=== PATIENT | female | born 1980 | race Hispanic/Latino ===

== ENCOUNTER 2018-09-30 13:47 | Observation (INO) | payer BC ==
[~2018-09-30] VITALS: Ht 165.1 cm; Wt 72.1 kg
[2018-09-30] MEDS ORDERED: SODIUM CHLORIDE 0.9% 1000ML 1,000 ML IV STA (13:49)
[2018-09-30] MEDS ORDERED: ONDANSETRON HCL INJ 2MG/ML 2ML 2 MG/ML VIAL IV STA (13:49)
[2018-09-30] MEDS ORDERED: MORPHINE SULFATE INJ 4 MG/ML INJ 1ML IV STA (13:49)
--- OUTSIDE RECORDS SUMMARY | 2018-09-30 13:50 | XMS REPORT | Encounter Summary ---
Author Organization Unknown Address [address] [place] [address] Phone [phone] Reason for Visit Screening - TB Instructions 1. Tuberculosis screening Tubersol 5 tub. unit/0.1 mL intradermal injection solution PPD (purified protein derivative), skin test Discussion Note Pt is in NAD; Verbalizes understanding of all instructions with no questions at this time. Patient educational handouts: No information available. Plan of Care Patient Instructions Return in 48-72 hrs for TB reading. If not, the skin test will be considered invalid and will have to be repeated. In case of emergency call 911 or go to nearest ER. Reminders Provider Appointments None recorded. Lab PPD (Purified Protein Derivative), Skin Test 03/05/2017 [facility] Referral None recorded. Procedures None recorded. Surgeries None recorded. Imaging None recorded. Medications Name Start Date Tubersol 5 tub. unit/0.1 mL intradermal injection solution Inject 0.1 mL by intradermal route. Medications Administered Name Date Tubersol 5 tub. unit/0.1 mL intradermal injection solution Inject 0.1 mL by intradermal route. [id number] Vitals None recorded. Lab Results None recorded. Allergies Code Code System Name Reaction Severity Status Onset NKDA Problems None recorded. Procedures None recorded. Vaccine List None recorded. Social History None recorded. Past Encounters 03/05/2017 Tuberculosis Screening Siria Bullard, SOFTWARE QUALITY TEST ENGINEER-C: [address] [place] [address], Ph. History of Present Illness Screening Request - TB Reported By: Patient Screening Request: BCG No prior BCG vaccination. PPD No past history of postive TB skin test (PPD), No previous severe local reaction to TB skin test (PPD). OTHER No prior vaccines within last month Review of Systems Screening - TB Reported By: Patient Symptoms during past year > 2 weeks, NOT associated with specific illness?: unexplained or low grade fever No fever. night sweats No night sweats. unexplained weight loss > 5 lbs No unexplained weight loss. persistent cough No persistent cough. shortness of breath No shortness of breath. coughing up blood (hemoptysis) No coughing up blood (hemoptysis). unusual fatigue No unusual fatigue. loss of appetite No loss of appetite. swollen neck glands No swollen neck glands Physical Exam Screening Reported By: Patient General Appearance: General: well-developed, well-nourished, no acute distress
--- OUTSIDE RECORDS SUMMARY | 2018-09-30 13:50 | XMS REPORT | Continuity of Care Document ---
Author Author [facility] Interface Address Unknown Phone Unavailable Problems Problem Status Onset Date Classification Date Reported Comments Source Tuberculosis screening 03/05/2017 Diagnosis 03/05/2017 [facility] Medications Medication Details Route Status Patient Instructions Ordering Provider Order Date Source Purified Protein Derivative of Tuberculin 50 UNT/ML Injectable Solution [Tubersol] Tubersol 5 tub. unit/0.1 mL intradermal injection solution Inject 0.1 mL by intradermal route. Active [facility] Allergies, Adverse Reactions, Alerts Substance Category Reaction Severity Reaction type Status Date Reported Comments Source Immunizations Immunization Date Given Site Status Last Updated Comments Source Results Order Name Results Value Reference Range Date Interpretation Comments Source Vital Signs Vital Sign Value Date Comments Source Encounters Location Location Details Encounter Type Encounter Number Reason For Visit Attending Provider ADM Date DC Date Status Source [place] - [facility] - [id number] Siria Bullard, UNIT OPERATOR-C: [address] [place] [address], Ph. [id number] Siria Bullard 03/05/2017 [facility] Procedures Procedure Code Date Perfomer Comments Source
[2018-09-30 14:06] LABS: BASOPHILS % 0.5 % (0.0-1.0); EOSINOPHILS # (AUTO) 0.1 (0.0-0.4); EOSINOPHILS % 2.1 % (0.0-6.0); HEMATOCRIT 36.8 % (34.2-44.1); HEMOGLOBIN 12.6 g/dL (12.0-16.0); LYMPHOCYTES # (AUTO) 1.7 (1.0-3.2); LYMPHOCYTES % 29.8 % (18.0-39.1); MEAN CORPUSCULAR HEMOGLOBIN 29.5 pg (28-32); MEAN CORPUSCULAR HGB CONC 34.2 g/dL (31-35); MEAN CORPUSCULAR VOLUME 86.2 fL (81-99); MONOCYTES # (AUTO) 0.5 (0.2-0.8); MONOCYTES % 8.1 % (4.4-11.3); NEUTROPHILS # (AUTO) 3.4 (2.1-6.9); NEUTROPHILS % 59.3 % (38.7-80.0); PLATELET COUNT 242 x10e3/uL (140-360); RED BLOOD COUNT 4.27 x10e6/uL (3.6-5.1); RED CELL DISTRIBUTION WIDTH 13.2 % (11.7-14.4)
[2018-09-30 14:16] LABS: BILIRUBIN,URINE NEGATIVE (NEGATIVE); CLARITY,URINE CLEAR (CLEAR); COLOR,URINE OTHER (YELLOW); KETONES,URINE NEGATIVE (NEGATIVE); LEUKOCYTE ESTERASE ,URINE NEGATIVE (NEGATIVE); NITRITE,URINE NEGATIVE (NEGATIVE); PROTEIN,URINE DIPSTICK NEGATIVE (NEGATIVE); URINE UROBILINOGEN 0.2 mg/dL (0.2 - 1)
[2018-09-30 14:19] LABS: PREGNANCY TEST, URINE NEGATIVE (NEGATIVE)
--- NOTE | 2018-09-30 14:20 | NUR ---
meds given per dr's orders, but dr. champagne was informed that pt requested only 2mg of morphine be given
[2018-09-30 14:23] LABS: ALANINE AMINOTRANSFERASE 13 IU/L (0-55); ALBUMIN 4.3 g/dL (3.5-5.0); ALBUMIN/GLOBULIN RATIO 1.4 (0.8-2.0); ALKALINE PHOSPHATASE 93 IU/L (40-150); AMYLASE 65 U/L (25-125); ANION GAP 12.8 mmol/L (8-16); BLOOD UREA NITROGEN 8 mg/dL (7-26); BUN/CREATININE RATIO 11 (6-25); CALCIUM 9.7 mg/dL (8.4-10.2); CARBON DIOXIDE 24 mmol/L (22-29); CHLORIDE 105 mmol/L (98-107); CREATININE, SERUM 0.74 mg/dL (0.57-1.11); EST GLOMERULAR FILTRATION RATE > 60 ML/MIN (60-); GLUCOSE 93 mg/dL (74-118); LIPASE 26 U/L (8-78); POTASSIUM 3.8 mmol/L (3.5-5.1); SODIUM 138 mmol/L (136-145)
--- NOTE | 2018-09-30 14:38 | NUR ---
additional 2mg of morphine given
[2018-09-30 14:41] LABS: WBC,URINE (MAN) 0-5 /HPF (0-5)
[2018-09-30 14:42] LABS: EPITHELIAL CELLS,URINE RARE /LPF; TRANSITIONAL EPI CELLS,URINE RARE
[2018-09-30] MEDS ORDERED: SODIUM CHLORIDE 0.9% 1000ML 1,000 ML IV SCH ×2 (16:00→16:09)
[2018-09-30] MEDS ORDERED: PIPERACILLIN/TAZO 4.5 GM 100 ML IV ONE (16:00)
--- NOTE | 2018-09-30 16:03 | Diagnostic Imaging Report ---
EXAMINATION: CT of the abdomen and pelvis with contrast. TECHNIQUE: Spiral CT images of the abdomen and pelvis were performed from the lung bases to the lesser trochanters after the intravenous administration of 100 cc Isovue-370 Coronal and sagittal reformatted images were obtained. COMPARISON: None. CLINICAL HISTORY:Right lower quadrant abdominal pain DISCUSSION: ABDOMEN/PELVIS: LOWER THORAX:Unremarkable. HEPATOBILIARY: Subcentimeter hypoattenuating lesion in segment 6, too small to further characterize but likely to represent a small cyst. Otherwise no focal hepatic lesion . No intrahepatic biliary ductal dilatation. The gallbladder is normal. SPLEEN: No splenomegaly. PANCREAS: No focal masses or ductal dilatation. ADRENALS: No adrenal nodules. KIDNEYS/URETERS: Punctate nonobstructing left upper pole renal calculus series 2 image 24. No renal mass lesion. PELVIC ORGANS/BLADDER: Urinary bladder is unremarkable. Uterus is anteflexed and appears normal. No adnexal mass. PERITONEUM/RETROPERITONEUM: No free air or fluid. LYMPH NODES: No intra-abdominal, retroperitoneal, pelvic or inguinal lymphadenopathy. VESSELS: The abdominal aorta, major branch vessels, and iliac arterial systems are patent, without aneurysmal dilatation. GI TRACT: The distal appendix is dilated to a caliber of 1.6 cm, with wall thickening and adjacent periappendiceal inflammation. An adjacent 9 mm fluid collection lies along the inferolateral margin of the distal appendix as seen on coronal image 42. No small bowel dilatation to suggest obstruction. BONES AND SOFT TISSUE: No bony destructive lesions. Subcentimeter nodule in the inferior right breast (series 2 image 8). Otherwise no focal soft tissue abnormalities. IMPRESSION: Acute appendicitis with a subcentimeter abscess adjacent to the appendiceal tip, of insufficient size for percutaneous drainage. Subcentimeter nodule in the right breast should be correlated with outpatient mammography and ultrasound. Findings were discussed with Dr. Gonzalez of the emergency center at 3:55 PM 09/30/2018. Signed by: Dr. Ash Hartmann M.D. on 09/30/2018 3:59 PM
[2018-09-30] MEDS ORDERED: MORPHINE SULFATE 2 MG/ML SYR 1ML IV PRN ×2 (16:15→16:30)
[2018-09-30] MEDS ORDERED: ONDANSETRON HCL INJ 2MG/ML 2ML 2 MG/ML VIAL IV PRN (16:15)
[2018-09-30] MEDS ORDERED: MORPHINE SULFATE INJ 4 MG/ML INJ 1ML IV PRN (16:30)
[2018-09-30] MEDS ORDERED: SODIUM CHLORIDE FLUSH 10 ML SYR INJ PRN (16:30)
--- OUTSIDE RECORDS SUMMARY | 2018-09-30 16:39 | XMS REPORT ---
Author Author [facility] Address Unknown Phone Unavailable Care Team Providers Care Pecan Mallow Dipper Name Role Phone Will IBRAHIM Unavailable Unavailable Problems This patient has no known problems. Allergies, Adverse Reactions, Alerts This patient has no known allergies or adverse reactions. Medications This patient has no known medications. Results Test Description Test Time Test Comments Text Results Atomic Results Result Comments CT ABDOMEN/PELVIS W 2018-09-30 15:38:00 [place] [address] Patient Name: PANCHO YATES MR #: [id number] : 1980 Age/Sex: 37/F Req #: [id number] Adm Physician: Ordered by: ZAINAB PEDRAZA APPLIQUER ZIGZAG Report #: [id number] Location: ER Room/Bed: Procedure: [id number] CT/CT ABDOMEN/PELVIS W Exam Date: 09/30/18 Exam Time: 1520 REPORT STATUS: Signed EXAMINATION: CT of the abdomen and pelvis with contrast. TECHNIQUE: Spiral CT images of the abdomen and pelvis were performed from the lung bases to the lesser trochanters after the intravenous administration of 100 cc Isovue-370 Coronal and sagittal reformatted images were obtained. COMPARISON: None. CLINICAL HISTORY:Right lower quadrant abdominal pain DISCUSSION: ABDOMEN/PELVIS: LOWER THORAX:Unremarkable. HEPATOBILIARY: Subcentimeter hypoattenuating lesion in segment 6, too small to further characterize but likely to represent a small cyst. Otherwise no focal hepatic lesion . No intrahepatic biliary ductal dilatation. The gallbladder is normal. SPLEEN: No splenomegaly. PANCREAS: No focal masses or ductal dilatation. ADRENALS: No adrenal nodules. KIDNEYS/URETERS: Punctate nonobstructing left upper pole renal calculus series 2 image 24. No renal mass lesion. PELVIC ORGANS/BLADDER: Urinary bladder is unremarkable. Uterus is anteflexed and appears normal. No adnexal mass. PERITONEUM/RETROPERITONEUM: No free air or fluid. LYMPH NODES: No intra-abdominal, retroperitoneal, pelvic or inguinal lymphadenopathy. VESSELS: The abdominal aorta, major branch vessels, and iliac arterial systems are patent, without aneurysmal dilatation. GI TRACT: The distal appendix is dilated to a caliber of 1.6 cm, with wall thickening and adjacent periappendiceal inflammation. An adjacent 9 mm fluid collection lies along the inferolateral margin of the distal appendix as seen on coronal image 42. No small bowel dilatation to suggest obstruction. BONES AND SOFT TISSUE: No bony destructive lesions. Subcentimeter nodule in the inferior right breast (series 2 image 8). Otherwise no focal soft tissue abnormalities. IMPRESSION: Acute appendicitis with a subcentimeter abscess adjacent to the appendiceal tip, of insufficient size for percutaneous drainage. Subcentimeter nodule in the right breast should be correlated with outpatient mammography and ultrasound. Findings were discussed with Dr. Ibrahim of the emergency center at 3:55 PM 09/30/2018. Signed by: Dr. Clif Davila M.D. on 09/30/2018 3:59 PM Dictated By: CLIF DAVILA MD [id number] Transcribed By: SHIRLEY on 09/30/18 [id number] COPY TO: ZAINAB PEDRAZA NP
[2018-09-30 16:43] LABS: INR 0.94; PROTHROMBIN TIME 13.1 seconds (11.9-14.5)
[2018-09-30 16:44] LABS: PARTIAL THROMBOPLASTIN TIME 30.3 seconds (23.8-35.5)
[2018-09-30] MEDS ORDERED: METRONIDAZOLE 500MG/NS 100ML IV SCH (18:00)
[2018-09-30] MEDS ORDERED: METRONIDAZOLE 500MG/NS 100ML 100 ML IV SCH (18:00)
--- NOTE | 2018-09-30 18:27 | NUR ---
2nd attempt to call report for this patient
--- NOTE | 2018-09-30 18:50 | NUR ---
report called to [facility] for this pt. to go to rm [phone]
[2018-09-30] MEDS: SODIUM CHLORIDE 0.9% 1000ML 1,000 ML IV SCH (19:05)
[2018-09-30] MEDS: FAMOTIDINE 20 MG/2 ML VIAL IV SCH (19:05)
[2018-09-30] MEDS ORDERED: IOPAMIDOL 370 MG/ML 200 ML INFUS..BTL INJ ONE (19:21)
[2018-09-30] MEDS ORDERED: SODIUM CHLORIDE 0.9% 50ML 50 ML ONE (19:21)
--- NOTE | 2018-09-30 19:45 | NUR ---
PT IS TRANSFERRED FROM ER AOX3 .RESPIRATIONS ARE EVEN AND UNLABORED .C/O MILD PAIN .FAMILY AT THE BEDSIDE .PT IS NPO .FAMILY AT THE BEDSIDE .ASSESSMENT DONE .CALL LIGHT WITH IN REACH .CONTINUE TO MONITOR
[2018-09-30 20:00] VITALS: BP 135/80
[2018-09-30] MEDS: METRONIDAZOLE 500MG/NS 100ML 100 ML IV SCH (21:31)
[2018-09-30] MEDS: MORPHINE SULFATE INJ 4 MG/ML INJ 1ML IV PRN (21:34)
[2018-09-30] MEDS: PIPER-TAZ 3.375 GM 50 ML IV SCH (22:00)
[2018-09-30] MEDS ORDERED: PIPER-TAZ 3.375 GM / NS 50ML IV SCH (22:00)
[2018-09-30 22:27] VITALS: BP 135/80
[2018-09-30 22:42] VITALS: BP 135/80
[2018-10-01] VITALS (9 sets, daily range): BP systolic 95–123; BP diastolic 56–72
[2018-10-01] MEDS: METRONIDAZOLE 500MG/NS 100ML 100 ML IV SCH ×4 (03:00→20:06)
[2018-10-01 05:02] LABS: BASOPHILS % 0.4 % (0.0-1.0); EOSINOPHILS # (AUTO) 0.1 (0.0-0.4); HEMATOCRIT 33.8 % (34.2-44.1); HEMOGLOBIN 11.2 g/dL (12.0-16.0); LYMPHOCYTES # (AUTO) 1.5 (1.0-3.2); MEAN CORPUSCULAR HEMOGLOBIN 28.9 pg (28-32); MEAN CORPUSCULAR HGB CONC 33.1 g/dL (31-35); MEAN CORPUSCULAR VOLUME 87.3 fL (81-99); MONOCYTES # (AUTO) 0.4 (0.2-0.8); MONOCYTES % 9.3 % (4.4-11.3); NEUTROPHILS # (AUTO) 2.7 (2.1-6.9); NEUTROPHILS % 55.9 % (38.7-80.0); PLATELET COUNT 187 x10e3/uL (140-360); RED BLOOD COUNT 3.87 x10e6/uL (3.6-5.1); RED CELL DISTRIBUTION WIDTH 13.3 % (11.7-14.4)
--- NOTE | 2018-10-01 05:15 | Pre Op History & Physical ---
CHIEF COMPLAINT: Right lower quadrant pain. HISTORY OF PRESENT ILLNESS: The patient is a very pleasant 37-year-old otherwise healthy female admitted complaining of abdominal pain that started 2 days ago and started in the morning in the right lower quadrant. There was no diarrhea, though she did experience a loose bowel movement yesterday. There was no vomiting. She denies any similar episodes. The patient presented to the emergency room where CT scan revealed acute appendicitis with small abscess at the tip of the appendix. PAST MEDICAL HISTORY: Unremarkable. PAST SURGICAL HISTORY: She has repair of umbilical hernia and tubal ligation. MEDICATIONS: She is currently taking no medications. FAMILY HISTORY: Noncontributory. SOCIAL HISTORY: She does not drink. Does not smoke. She works at a [employer]. REVIEW OF SYSTEMS: Significant for what has been stated. PHYSICAL EXAMINATION: GENERAL: Reveals a 37-year-old female, in no acute distress. She is afebrile with stable vital signs. HEAD, EYES, EARS, NOSE, AND THROAT: Reveals no acute process. NECK: The neck revealed no tracheal deviation. No palpable masses. LUNGS: Clear. HEART: Reveals regular sinus rhythm. ABDOMEN: Soft. At this point, there is minimal tenderness to palpation in the right lower quadrant. Bowel sounds are present. PELVIC: Deferred. EXTREMITIES: Reveal no clubbing, cyanosis, or edema. NEUROLOGICAL: Nonfocal. LABORATORY AND DIAGNOSTIC DATA: Admission labs reveal a normal white count with a normal hematocrit and platelets. Normal electrolytes. CT scan has already been discussed. ASSESSMENT: 1. Acute appendicitis with small abscess in the tip of the appendix, less than 1 cm. 2. Dehydration. PLAN: The plan is to proceed with laparoscopic appendectomy, possible open appendectomy tomorrow. We will hydrate the patient overnight and give her antibiotics. The surgical plans have been discussed with the patient. She agrees with them and gives informed consent. MD HOPE Morris/LEYDI /[id number]
[2018-10-01 05:28] LABS: ALANINE AMINOTRANSFERASE 11 IU/L (0-55); ALBUMIN 3.5 g/dL (3.5-5.0); ALBUMIN/GLOBULIN RATIO 1.3 (0.8-2.0); ALKALINE PHOSPHATASE 69 IU/L (40-150); ANION GAP 10.7 mmol/L (8-16); BLOOD UREA NITROGEN 7 mg/dL (7-26); BUN/CREATININE RATIO 9 (6-25); CALCIUM 8.5 mg/dL (8.4-10.2); CARBON DIOXIDE 24 mmol/L (22-29); CHLORIDE 108 mmol/L (98-107); CREATININE, SERUM 0.77 mg/dL (0.57-1.11); EST GLOMERULAR FILTRATION RATE > 60 ML/MIN (60-); GLUCOSE 90 mg/dL (74-118); POTASSIUM 3.7 mmol/L (3.5-5.1); SODIUM 139 mmol/L (136-145)
[2018-10-01] MEDS: PIPER-TAZ 3.375 GM 50 ML IV SCH ×3 (06:43→21:03)
[2018-10-01] MEDS: SODIUM CHLORIDE 0.9% 1000ML 1,000 ML IV SCH ×4 (06:43→21:04)
--- NOTE | 2018-10-01 06:44 | NUR ---
PT C/O PAIN AND GIVEN MORPHINE ONE TIME .PT IS NPO FOR THE PROCEDURE .PT WANTS BATH AFTER 7AM .FAMILY AT THE BEDSIDE .CALL LIGHT WITH IN REACH .CONTINUE TO MONITOR
--- NOTE | 2018-10-01 07:00 | NUR ---
REPORT GIVEN TO THE ONCOMING NURSE
--- NOTE | 2018-10-01 07:10 | NUR ---
Walking rounds and report received. Patient is awake, alert with no complaints voiced. POC discussed in Macedonian. Patient aware she is NPO for planned surgery. She was instructed to call for assistance as needed and verbalized understanding. AM assessment done. Call flower within reach.
[2018-10-01] MEDS: FAMOTIDINE 20 MG/2 ML VIAL IV SCH ×2 (08:24→16:35)
--- NOTE | 2018-10-01 09:09 | NUR ---
PATIENT OFF UNIT TO or VIA BED, FAMILY AT BEDSIDE.
[2018-10-01] MEDS ORDERED: BUPIVACAINE 0.25%/EPI 30ML SDV INJ ONE (09:35)
[2018-10-01] MEDS ORDERED: ONDANSETRON HCL INJ 2MG/ML 2ML 2 MG/ML VIAL ONE ×2 (11:39→18:06)
[2018-10-01] MEDS ORDERED: METOCLOPRAMIDE HCL 10 MG/2ML VIAL ONE (11:40)
[2018-10-01] MEDS ORDERED: PROMETHAZINE HCL (IM) 25 MG/ML VIAL ONE (11:45)
[2018-10-01] MEDS ORDERED: MEPERIDINE HCL INJ 25 MG/ML VIAL ONE (11:59)
--- NOTE | 2018-10-01 12:40 | NUR ---
PATIENT ARRIVED FROM PACU, DROWSY BUT AROUSES TO VERBAL STIMULI. SHE WAS ASSISTED TO BED FROM STRETCHER. TROCAR SITES X3 INTACT. VITAL SIGNS WERE STABLE. PATIENT INSTRUCTED TO CALL FOR ASSISTANCE NEEDED AND VERBALIZED UNDERSTANDING. SPOUSE AT BEDSIDE. DR. Tacho BONILLA CAME IN AND SPOKE TO SPOUSE REGARDING PLAN OF CARE.
--- NOTE | 2018-10-01 13:17 | Operative Report ---
DATE OF PROCEDURE: 10/01/2018 SURGEON: Philippe Gentile MD PREOPERATIVE DIAGNOSIS: Acute appendicitis with pelvic abscess. POSTOPERATIVE DIAGNOSIS: Acute appendicitis with pelvic abscess. PROCEDURE PERFORMED: Laparoscopic appendectomy. ANESTHESIA: General endotracheal. INSULATION MACHINE OPERATOR: FADI Daley. ESTIMATED BLOOD LOSS: Minimal. DRAINS: None. COMPLICATIONS: None. INDICATION AND FINDINGS: The patient is a 37-year-old female, who was admitted to the hospital with acute appendicitis with an abscess located on the tip of the appendix. She had started having abdominal pain since Sunday, again worsened, reason for which she came to the emergency room. A CT scan revealed changes consistent with acute appendicitis and an abscess in the tip of the appendix. There were inflammatory changes near the mesoappendix. Her white count was normal. She had no fever. Physical examination revealed her lower quadrant tenderness localized. INTRAOPERATIVE FINDINGS: The patient had an appendicitis with rather long appendix that was retrocecal and stuck to the pelvic wall with a perforation and an abscess at the tip of the appendix. The appendectomy was performed using an Endo-SHEN stapler with a blue load. DESCRIPTION OF PROCEDURE: With the patient lying on the operative table in the supine position after administration of general anesthesia, she was prepped and draped for laparoscopic appendectomy. The procedure was begun by establishing the pneumoperitoneum in the right upper quadrant midclavicular line because of previous umbilical hernia repair and tubal ligation. The pneumoperitoneum was insufflated to 50 mm of pressure and then 5 mm camera was introduced. The umbilical area was free of any adhesions and then we went ahead and placed 11/12 trocar in that location. Finally, right-sided suprapubic 5 mm trocar was placed. Upon entering the abdomen, performed general laparoscopy. We were able to identify the appendix go on retrocecally from the cecum and into the wall and extended superiorly. We then had to incise the peritoneum and open up the retrocecal area to get to the appendix. The tip of the appendix was inflamed and it was thick. We started then the procedure by first performing the appendectomy by dissecting up to the appendiceal cecal junction. After identification of the ileocecal valve and then we transected the appendix with the tip of the cecum with the Endo-SHEN blue load staple and then proceeded of the mesoappendix that was inflamed, somewhat fibrotic and we dealt with the blood supply to the appendix with electrocautery and 5 mm denny. As we mobilized the appendix, there was slight pus spillage that was admittedly sort out. It was a thick pus, but the contamination was minimal. After we then performed appendectomy, we placed the appendix specimen in an endobag and removed it through the umbilical port. After we did that, we irrigated the pelvis, the right gutter, and the appendiceal cecal junction. There was no evidence of bleeding. There was no evidence of any bowel injury and then we released the pneumoperitoneum and closed the wounds using 0-Vicryl for the umbilical fascia and denny . The patient tolerated the procedure well, taken to recovery room in stable condition. MD HOPE Morris/LEYDI /[id number]
[2018-10-01] MEDS: ONDANSETRON HCL INJ 2MG/ML 2ML 2 MG/ML VIAL IV PRN ×2 (14:19→22:15)
[2018-10-01] MEDS: MORPHINE SULFATE INJ 4 MG/ML INJ 1ML IV PRN ×2 (16:35→22:16)
[2018-10-01] MEDS ORDERED: GLYCOPYRROLATE INJ 1MG/ 5 ML SYR ONE (18:06)
[2018-10-01] MEDS ORDERED: ROCURONIUM BROMIDE 10 MG/ML 5ML VIAL ONE (18:06)
[2018-10-01] MEDS ORDERED: NEOSTIGMINE 5 MG/5ML SYR ONE (18:06)
[2018-10-01] MEDS ORDERED: PROPOFOL IV EMULSION 10 MG/ML 20 ML VIAL ONE (18:06)
[2018-10-01] MEDS ORDERED: SEVOFLURANE INHAL SOLN 250 ML PEN BTL ONE (18:06)
[2018-10-01] MEDS ORDERED: KETOROLAC TROMETHAMINE 30 MG/ML VIAL ONE (18:06)
[2018-10-01] MEDS ORDERED: LIDOCAINE HCL 2% LOCAL INJ 5 ML SDV VIAL INJ ONE (18:06)
[2018-10-01] MEDS ORDERED: DEXAMETHASONE SOD PHOS INJ 4 MG/ML VIAL ONE (18:06)
[2018-10-01] MEDS ORDERED: MIDAZOLAM HCL 2 MG/2 ML VIAL ONE (19:50)
[2018-10-01] MEDS ORDERED: FENTANYL CITRATE/PF 100MCG/2 ML INJ ONE (19:50)
[2018-10-02] VITALS (7 sets, daily range): BP systolic 98–109; BP diastolic 55–74
[2018-10-02] MEDS: METRONIDAZOLE 500MG/NS 100ML 100 ML IV SCH ×4 (03:02→20:20)
[2018-10-02] MEDS: PIPER-TAZ 3.375 GM 50 ML IV SCH ×3 (05:05→22:23)
[2018-10-02] MEDS: MORPHINE SULFATE INJ 4 MG/ML INJ 1ML IV PRN ×2 (05:34→13:10)
[2018-10-02] MEDS: ONDANSETRON HCL INJ 2MG/ML 2ML 2 MG/ML VIAL IV PRN ×3 (05:36→22:38)
[2018-10-02 05:43] LABS: BASOPHILS % 0.1 % (0.0-1.0); EOSINOPHILS # (AUTO) 0.2 (0.0-0.4); HEMATOCRIT 31.9 % (34.2-44.1); HEMOGLOBIN 10.7 g/dL (12.0-16.0); LYMPHOCYTES % 12.4 % (18.0-39.1); MEAN CORPUSCULAR HEMOGLOBIN 29.2 pg (28-32); MEAN CORPUSCULAR HGB CONC 33.5 g/dL (31-35); MEAN CORPUSCULAR VOLUME 86.9 fL (81-99); MONOCYTES # (AUTO) 0.5 (0.2-0.8); MONOCYTES % 6.2 % (4.4-11.3); NEUTROPHILS # (AUTO) 6.3 (2.1-6.9); PLATELET COUNT 196 x10e3/uL (140-360); RED BLOOD COUNT 3.67 x10e6/uL (3.6-5.1); RED CELL DISTRIBUTION WIDTH 13.3 % (11.7-14.4)
--- NOTE | 2018-10-02 08:25 | NUR ---
Patient ambulating inside room, not in SOB, minimal pain on abdomen when walk. Dr Will Gentile had rounds , tolerated clear liquid diet
[2018-10-02] MEDS: FAMOTIDINE 20 MG/2 ML VIAL IV SCH ×2 (08:47→17:11)
--- NOTE | 2018-10-02 10:43 | NUR ---
Nutrition Screen Note RD Recommendation for Physician: -Advance diet as tolerated Plan of Care: RD following, monitoring for tolerance and adequacy Nutrition reason for involvement: Nutrition Risk Trigger MST Primary Diagnose(s): Appendicitis PMH: unremarkable Ht: 65in Wt: 159lb BMI: 26.5kg/m2 IBW: 125lb RD Assessment: (10/02) Chart reviewed. Labs and meds reviewed. 37yo F, who was admitted for abdominal pain. S/p laparoscopic appendectomy. POD 1. Visited pt in the room. Per family, pt was eating well prior to this pain started, about 2 days ago. Weight has been stable. Zofran was given for nausea. No vomiting episode reported. No chewing or swallowing issue reported. Rec to advance diet as tolerated. Current Diet: full liquid Malnutrition Evaluation (10/02/18) The patient does not meet criteria for a specified degree of malnutrition at this time. Will re-evaluate at follow-up as appropriate. Diet Education Needs Assessment: Diet education not indicated. Nutrition Care Level: low Signed: Grecia La, MS, RD, LD
[2018-10-02] MEDS: SODIUM CHLORIDE 0.9% 1000ML 1,000 ML IV SCH (16:02)
[2018-10-02] MEDS ORDERED: HYDROMORPHONE 1MG/1ML INJ IV PRN (18:45)
[2018-10-02] MEDS ORDERED: HYDROCODONE BIT/ACETAMINOPHEN 2.5 MG/108MG PER 5 ML SOLUTION PO PRN (18:45)
--- NOTE | 2018-10-02 19:00 | NUR ---
Received bedside report from day shift RN. Patient is laying on the bed with some discomfort over the abdomen area. Family members and friends at bedside. Call light within reach, wheels lock, side rails up x2.
[2018-10-02] MEDS ORDERED: HYDROCODONE/APAP 7.5MG-325MG 1 EA TAB PO PRN (19:15)
[2018-10-03] VITALS: BP 118/69
[2018-10-03] MEDS: SODIUM CHLORIDE 0.9% 1000ML 1,000 ML IV SCH (02:08)
[2018-10-03] MEDS: METRONIDAZOLE 500MG/NS 100ML 100 ML IV SCH ×2 (02:08→08:20)
[2018-10-03 04:00] VITALS: BP 112/67
[2018-10-03] MEDS: HYDROMORPHONE 2MG/ML 2 MG/ML ML IV PRN ×3 (04:22→13:30)
[2018-10-03] MEDS: PIPER-TAZ 3.375 GM 50 ML IV SCH (05:08)
[2018-10-03 07:35] VITALS: BP 116/70
[2018-10-03 07:55] VITALS: BP 116/70
[2018-10-03] MEDS: FAMOTIDINE 20 MG/2 ML VIAL IV SCH (08:20)
--- NOTE | 2018-10-03 09:05 | NUR ---
PATIENT UP IN BED, NO DISTRESS, NEW ORDER FROM DR Will BONILLA TO ADVANCE DIET TO GI SOFT
[2018-10-03] MEDS ORDERED: TYLENOL WITH C1 EACH PO (10:41)
[2018-10-03] MEDS ORDERED: CEFTRIAXONE SOD 1 GM/NS 50 ML 50 ML IV ONE (10:45)
[2018-10-03 11:13] VITALS: BP 118/69
--- NOTE | 2018-10-03 11:28 | Discharge Summary ---
The patient is an otherwise 37-year-old female admitted complaining of abdominal pain for two days, located in the right lower quadrant. The patient presented to [facility] on the day of admission and went to emergency room where she had a CT scan of the abdomen and pelvis that revealed appendicitis with localized perforation in the area of the tip of the appendix. The patient was admitted, given intravenous antibiotics and taken to the operating room. Laparoscopic appendectomy was performed uneventful. There was at this time what appeared to be an abscess in the area of the tip of the appendix. The patient's postop course was unremarkable. She is given intravenous antibiotics because of the abscess and was discharged home in stable condition on 10/03/2018. The pathology report revealed that she had perforated appendicitis with abscess, ruptured cyst adenoma of the appendix. There was no evidence of malignancy. The patient was discharged home in stable condition. Pain medication was Tylenol No. 3 one every 4-6 hours p.r.n. for pain, #40, no refills. She was instructed not to do any heavy lifting. She has no work tolerance. The patient will be followed up in my office on Sunday following discharge. At that time, I will discuss with her getting a 2nd opinion regarding the course and treatment of her condition. At this point, I believe that there is no further surgical intervention. MD HOPE Morris/LEYDI /[id number]
[2018-10-03] MEDS: ONDANSETRON HCL INJ 2MG/ML 2ML 2 MG/ML VIAL IV PRN (13:30)
--- NOTE | 2018-10-03 14:10 | NUR ---
patient discharged home, prescription given, IV canula removed with tip intact, not in any distress or SOB, Incision site on abdomen dressing is intact , no bleeding or drainage, Dr Will corrigan had rounds stated patient can go home , she tolerated gi soft diet, transported via wheelchair to [facility]
== END 2018-10-03 14:09 | disposition home or self-care (01) ==
LOC: ER 13:47 → ERHOLD 16:36 → IMCU 19:30
PROVIDERS: ADMIT Surgery; ATTEND Surgery
DX: K35.33 Acute appendicitis with perforation, localized peritonitis, and gangrene, with abscess (principal); D12.1 Benign neoplasm of appendix; Z82.49 Family history of ischemic heart disease and other diseases of the circulatory system; E86.0 Dehydration
CPT/HCPCS: 36415 ×3; 44970; 74177; 80053 ×2; 81001; 81025; 82150; 83690; 85025 ×3; 85610; 85730; 88304; 99284; C1766; G0378 ×4; J0696; J1100; J1170; J1885; J2001; J2175; J2250; J2270 ×3; J2405 ×4; J2543 ×5; J2550; J2704; J2765; J3490; J7030 ×4; Q9967; J3010

== ENCOUNTER 2019-07-29 09:36 | Emergency (ER) | payer BC ==
[~2019-07-29] VITALS: Ht 165.1 cm; Wt 72.1 kg
[~2019-07-29 09:36] MED LIST: TYLENOL WITH C1 EACH PO
[2019-07-29] MEDS ORDERED: SODIUM CHLORIDE 0.9% 1000ML 1,000 ML IV STA (09:49)
[2019-07-29] MEDS ORDERED: KETOROLAC TROMETHAMINE 30 MG/ML VIAL IV STA (09:49)
[2019-07-29] MEDS ORDERED: ONDANSETRON HCL INJ 2MG/ML 2ML 2 MG/ML VIAL IV STA (09:49)
[2019-07-29] MEDS ORDERED: KETOROLAC TROMETHAMINE 30 MG/ML VIAL ONE (10:19)
[2019-07-29] MEDS ORDERED: ONDANSETRON HCL INJ 2MG/ML 2ML 2 MG/ML VIAL ONE (10:19)
[2019-07-29 10:24] LABS: BASOPHILS % 0.4 % (0.0-1.0); EOSINOPHILS # (AUTO) 0.1 (0.0-0.4); EOSINOPHILS % 2.2 % (0.0-6.0); HEMATOCRIT 36.8 % (34.2-44.1); HEMOGLOBIN 12.4 g/dL (12.0-16.0); LYMPHOCYTES # (AUTO) 1.4 (1.0-3.2); LYMPHOCYTES % 28.3 % (18.0-39.1); MEAN CORPUSCULAR HEMOGLOBIN 28.9 pg (28-32); MEAN CORPUSCULAR HGB CONC 33.7 g/dL (31-35); MEAN CORPUSCULAR VOLUME 85.8 fL (81-99); MONOCYTES # (AUTO) 0.3 (0.2-0.8); MONOCYTES % 6.3 % (4.4-11.3); NEUTROPHILS # (AUTO) 3.2 (2.1-6.9); NEUTROPHILS % 62.6 % (38.7-80.0); PLATELET COUNT 209 x10e3/uL (140-360); RED BLOOD COUNT 4.29 x10e6/uL (3.6-5.1); RED CELL DISTRIBUTION WIDTH 13.5 % (11.7-14.4)
[2019-07-29 10:40] LABS: CLARITY,URINE CLEAR (CLEAR); COLOR,URINE YELLOW (YELLOW); LEUKOCYTE ESTERASE ,URINE NEGATIVE (NEGATIVE); NITRITE,URINE NEGATIVE (NEGATIVE)
[2019-07-29 10:41] LABS: BILIRUBIN,URINE NEGATIVE (NEGATIVE); KETONES,URINE NEGATIVE (NEGATIVE); PROTEIN,URINE DIPSTICK NEGATIVE (NEGATIVE); URINE UROBILINOGEN 0.2 mg/dL (0.2 - 1)
[2019-07-29 10:42] LABS: ALANINE AMINOTRANSFERASE 9 IU/L (0-55); ALBUMIN 3.9 g/dL (3.5-5.0); ALBUMIN/GLOBULIN RATIO 1.3 (0.8-2.0); ALKALINE PHOSPHATASE 86 IU/L (40-150); ANION GAP 6.7 mmol/L (8-16); BLOOD UREA NITROGEN 8 mg/dL (7-26); BUN/CREATININE RATIO 11 (6-25); CALCIUM 8.9 mg/dL (8.4-10.2); CARBON DIOXIDE 27 mmol/L (22-29); CHLORIDE 107 mmol/L (98-107); CREATININE, SERUM 0.72 mg/dL (0.57-1.11); EST GLOMERULAR FILTRATION RATE > 60 ML/MIN (60-); GLUCOSE 95 mg/dL (74-118); POTASSIUM 3.7 mmol/L (3.5-5.1); SODIUM 137 mmol/L (136-145)
[2019-07-29 10:45] LABS: PREGNANCY TEST, URINE NEGATIVE (NEGATIVE)
[2019-07-29 10:53] LABS: BACTERIA,URINE RARE /HPF; EPITHELIAL CELLS,URINE FEW /LPF; RBC,URINE 0-5 /HPF (0-5); WBC,URINE (MAN) 0-5 /HPF (0-5)
--- NOTE | 2019-07-29 11:20 | Diagnostic Imaging Report ---
CT of the abdomen and pelvis History: Left leg pain Comparison: 09/30/2018. Technique: Multidetector CT scanning of the abdomen and pelvis was performed from the level of the lung bases to the inferior pubic ramus without contrast DOSE REDUCTION: The examination was performed according to departmental dose-optimization program which includes automated exposure control, adjustment of the mA and/or kV according to patient size and/or use of iterative reconstruction technique. Discussion: The lung bases are clear. Lack of IV contrast limits evaluation of solid and hollow visceral organs. No suspicious hepatic lesions are identified. There is a subcentimeter segment 6 hypodensity which is too small to characterize but statistically represents a cyst. The gallbladder is present nondistended. No radiopaque gallstones. There is no intrahepatic or extra hepatic biliary dilatation. The spleen is within normal limits. The bilateral adrenal glands are unremarkable. The pancreas is normal in attenuation. There is no pancreatic ductal dilatation or peripancreatic inflammatory stranding. The kidneys are normal in size. No right renal calculi are identified. There is a nonobstructing 4 mm calculus in the left upper pole. There is no hydroureteronephrosis bilaterally. No perinephric stranding is present. The stomach, small, and large bowel are nondistended. There is no evidence of obstruction. No bowel wall thickening is appreciated. The appendix is absent. There is no free intraperitoneal air or ascites. The abdominal aorta is of normal course and caliber. The uterus and bilateral adnexa are within normal limits. There are no acute osseous abnormalities. IMPRESSION: 4 mm nonobstructing calculus in the upper pole of the left kidney. Signed by: Mauricio Austin MD on 07/29/2019 11:17 AM
[2019-07-29 12:05] VITALS: BP 117/85
== END 2019-07-29 12:34 | disposition home or self-care (01) ==
LOC: ER 09:36
DX: M54.5 Low back pain (principal); R30.0 Dysuria; R11.0 Nausea; R10.9 Unspecified abdominal pain; N20.0 Calculus of kidney
CPT/HCPCS: 36415; 74176; 80053; 81001; 81025; 85025; 87086; 99284; J1885; J2405; J7030

== ENCOUNTER 2021-08-30 14:37 | Emergency (ER) | payer BC ==
[~2021-08-30] VITALS: Ht 165.1 cm; Wt 72.1 kg
[2021-08-30] MEDS ORDERED: IBUPROFEN600 MG PO (16:09)
== END 2021-08-30 16:47 | disposition home or self-care (01) ==
LOC: ER 16:13
DX: M54.42 Lumbago with sciatica, left side (principal)
CPT/HCPCS: 99282

== ENCOUNTER 2021-12-26 12:35 | Emergency (ER) | payer BC ==
[~2021-12-26] VITALS: Ht 167.6 cm; Wt 74.9 kg
[~2021-12-26 12:35] MED LIST changes: +IBUPROFEN600 MG PO
[2021-12-26] MEDS ORDERED: SODIUM CHLORIDE 0.9% 1000ML 1,000 ML IV SCH (13:30)
[2021-12-26] MEDS ORDERED: IOPAMIDOL 370 MG/ML 100 ML INFUS..BTL INJ ONE (13:42)
[2021-12-26] MEDS ORDERED: SODIUM CHLORIDE 0.9% 100 ML ONE (13:42)
[2021-12-26] MEDS ORDERED: PREDNISONE20 MG PO ×2 (16:12→16:15)
[2021-12-26] MEDS ORDERED: CYCLOBENZAPRINE10 MG PO ×2 (16:13→16:15)
[2021-12-26] MEDS ORDERED: NAPROSYN500 MG PO (16:14)
[2021-12-26] MEDS ORDERED: PREDNISONE 20 MG TAB ONE (16:25)
== END 2021-12-26 16:21 | disposition home or self-care (01) ==
LOC: FSED 12:49
DX: R20.2 Paresthesia of skin (principal); R22.1 Localized swelling, mass and lump, neck; M54.2 Cervicalgia
CPT/HCPCS: 70496; 70498; 80053; 81003; 81025; 82553; 84484; 85025; 99284; J7050; J7512; Q9967; 93005

== ENCOUNTER 2024-03-27 14:09 | Emergency (ER) | payer BC ==
[~2024-03-27] VITALS: Ht 167.6 cm; Wt 74.8 kg
[~2024-03-27 14:09] MED LIST changes: +CYCLOBENZAPRINE10 MG PO; +NAPROSYN500 MG PO; +PREDNISONE20 MG PO
[2024-03-27 14:19] VITALS: TEMP 98.9
[2024-03-27 15:02] LABS: BASOPHILS % 0.4 % (0.0-1.0); EOSINOPHILS # (AUTO) 0.1 (0.0-0.4); EOSINOPHILS % 2.3 % (0.0-6.0); HEMATOCRIT 32.5 % (34.2-44.1); HEMOGLOBIN 9.4 g/dL (12.0-16.0); LYMPHOCYTES % 19.9 % (18.0-39.1); MEAN CORPUSCULAR HEMOGLOBIN 21.8 pg (28-32); MEAN CORPUSCULAR HGB CONC 28.9 g/dL (31-35); MEAN CORPUSCULAR VOLUME 75.4 fL (81-99); MONOCYTES # (AUTO) 0.4 (0.2-0.8); NEUTROPHILS # (AUTO) 3.3 (2.1-6.9); NEUTROPHILS % 68.2 % (38.7-80.0); PLATELET COUNT 230 x10e3/uL (140-360); RED BLOOD COUNT 4.31 x10e6/uL (3.6-5.1); RED CELL DISTRIBUTION WIDTH 16.9 % (11.7-14.4); WHITE BLOOD COUNT 4.87 x10e3/uL (4.8-10.8)
[2024-03-27] MEDS: KETOROLAC TROMETHAMINE 30 MG/ML VIAL IV STA (15:03)
[2024-03-27] MEDS: SODIUM CHLORIDE 0.9% 1000ML 1,000 ML IV ONE (15:04)
[2024-03-27 15:22] LABS: BILIRUBIN,URINE NEGATIVE (NEGATIVE); CLARITY,URINE SL CLOUDY (CLEAR); COLOR,URINE YELLOW (YELLOW); GLUCOSE, URINE NEGATIVE (NEGATIVE); KETONES,URINE NEGATIVE (NEGATIVE); LEUKOCYTE ESTERASE ,URINE NEGATIVE (NEGATIVE); NITRITE,URINE NEGATIVE (NEGATIVE); PH,URINE 7 (5 - 7); PROTEIN,URINE DIPSTICK NEGATIVE (NEGATIVE); URINE UROBILINOGEN 0.2 mg/dL (0.2 - 1)
[2024-03-27 15:22] LABS: ALANINE AMINOTRANSFERASE 13 IU/L (0-55); ALBUMIN 4.3 g/dL (3.5-5.0); ALBUMIN/GLOBULIN RATIO 1.4 (0.8-2.0); ALKALINE PHOSPHATASE 92 IU/L (40-150); ANION GAP 12.4 mmol/L (8-16); BILIRUBIN,TOTAL 0.7 mg/dL (0.2-1.2); BLOOD UREA NITROGEN 11 mg/dL (7-26); BUN/CREATININE RATIO 14 (6-25); CALCIUM 9.3 mg/dL (8.4-10.2); CARBON DIOXIDE 22 mmol/L (22-29); CHLORIDE 109 mmol/L (98-107); CREATININE, SERUM 0.81 mg/dL (0.57-1.11); EST GLOMERULAR FILTRATION RATE 91 ML/MIN (>=60); GLUCOSE 100 mg/dL (74-118); LIPASE 32 U/L (8-78); SODIUM 140 mmol/L (136-145); TOTAL PROTEIN 7.3 g/dL (6.5-8.1)
[2024-03-27 15:24] LABS: POTASSIUM 3.4 mmol/L (3.5-5.1)
[2024-03-27 15:33] LABS: BACTERIA,URINE MODERATE /HPF; EPITHELIAL CELLS,URINE FEW /LPF
[2024-03-27] MEDS ORDERED: IOPAMIDOL 370 MG/ML 100 ML INFUS..BTL INJ ONE (15:49)
[2024-03-27 16:00] VITALS: PULSE 75; RESP 18
[2024-03-27] MEDS ORDERED: MIRALAX17 GM PO (18:06)
[2024-03-27 19:02] VITALS: BP 122/100; PULSE 78; RESP 18; TEMP 98.2; O2SAT 100
== END 2024-03-27 19:11 | disposition home or self-care (01) ==
LOC: ER 14:31
DX: R06.00 Dyspnea, unspecified (principal); K59.00 Constipation, unspecified; R10.12 Left upper quadrant pain; R53.83 Other fatigue
CPT/HCPCS: 36415; 71046; 71260; 74177; 80053; 81001; 83690; 83880; 84702; 85025; 85379; 93005; 99284; J1885; J7030; Q9967